=== PATIENT | female | born 1980 | race Caucasian/White ===

== ENCOUNTER 2022-06-28 14:41 | Emergency (ER) | payer MEDICAID ==
[~2022-06-28] VITALS: Ht 165.1 cm; Wt 75.0 kg
[2022-06-28 16:36] LABS: ALANINE AMINOTRANSFERASE 26 U/L (12-78); ALBUMIN 3.2 G/DL (3.4-5.0); ALBUMIN/GLOBULIN RATIO 0.8 (1.1-1.5); ALKALINE PHOSPHATASE 104 IU/L (46-116); ANION GAP 14 (8-16); ASPARTATE AMINO TRANSFERASE 16 U/L (10-37); BILIRUBIN,TOTAL 0.2 MG/DL (0.1-1.0); BLOOD UREA NITROGEN 11 MG/DL (7-18); BUN/CREATININE RATIO 6.4 (6.6-38.0); CALCIUM 9.5 MG/DL (8.5-10.1); CHLORIDE 97 MMOL/L (99-107); CREATININE 1.73 MG/DL (0.40-0.90); GLUCOSE 122 MG/DL (70-104); LIPASE 77 U/L (73-393); SODIUM 134 MMOL/L (135-145); TOTAL CARBON DIOXIDE 23.5 MMOL/L (24-32); TOTAL PROTEIN 7.4 G/DL (6.4-8.2); eGFR 32 ML/MIN
[2022-06-28 16:38] LABS: BASOPHILS % (AUTO) 0.3 % (0-1); EOSINOPHILS % (AUTO) 0.3 % (0-6); HEMATOCRIT 38.8 % (35.0-45.0); HEMOGLOBIN 13.3 g/dl (12.0-16.0); LYMPHOCYTES # (AUTO) 0.8 X10'3 (1.1-4.8); LYMPHOCYTES % (AUTO) 9.2 % (21-51); MEAN CORPUSCULAR HEMOGLOBIN 34.1 PG (27.0-31.0); MEAN CORPUSCULAR HGB CONC 34.3 g/dL (33.0-36.5); MEAN CORPUSCULAR VOLUME 99.6 FL (78-98); MEAN PLATELET VOLUME 8.1 FL (7.4-10.4); NEUTROPHILS # (AUTO) 6.1 X10'3 (1.8-7.7); NEUTROPHILS % (AUTO) 68.2 % (42-75); PLATELET COUNT 296 X10'3 (140-440); RED BLOOD COUNT 3.89 X10'6 (4.20-5.60); RED CELL DISTRIBUTION WIDTH 13.1 % (11.5-14.5)
[2022-06-28 16:43] LABS: POTASSIUM 2.6 MMOL/L (3.5-5.1)
[2022-06-28 16:58] LABS: PLATELET ESTIMATE NORMAL; STOMATOCYTES FEW; TOTAL CELLS COUNTED 100
[2022-06-28] MEDS ORDERED: POTASSIUM BICARB 20meq eff tab 20 MEQ TABLET.EFF PO STA (17:00)
[2022-06-28] MEDS ORDERED: potassium Cl 20 mEq SR tablet PO ONE (17:00)
[2022-06-28] MEDS ORDERED: LISI2.5T89 (17:12)
[2022-06-28] MEDS ORDERED: LISI5TAB22 (17:14)
--- NOTE | 2022-06-28 18:09 | NUR ---
ATTEMPT EKG, PT NOT IN LOBBY AT TIME. WILL ATTEMPT AGAIN.
--- NOTE | 2022-06-28 18:36 | NUR ---
URINE SENT TO LAB ORDERED
[2022-06-28 19:19] LABS: URINE HCG NEGATIVE (NEG)
[2022-06-28 19:24] LABS: CLARITY,URINE SLIGHTLY CLOUDY (Clear); COLOR,URINE YELLOW (Yellow); GLUCOSE, URINE NEGATIVE (Neg); KETONES,URINE TRACE mg/dl (Neg); LEUKOCYTE ESTERASE ,URINE NEGATIVE (Neg); NITRITES, URINE NEGATIVE (Neg); OCCULT BLOOD,URINE TRACE-INTACT (Neg); PH,URINE 5.5 (4.8-8.0); PROTEIN,URINE NEGATIVE (Neg); UROBILINOGEN,URINE 0.2 E.U/dL (0.2-1.0)
[2022-06-28 19:30] LABS: UA COLLECTION TYPE CLN CATCH MIDSTREAM
[2022-06-28 19:31] LABS: BACTERIA,URINE 1+ /HPF (Neg); RBC,URINE 0-2 /HPF (0-2); SQUAMOUS EPITHELIAL CELL,UR MODERATE /LPF (FEW)
[2022-06-28] MEDS ORDERED: ondansetron 4mg rapidly disintigrating tab PO ONE (21:15)
[2022-06-28 21:54] LABS: ANION GAP 12 (8-16); BLOOD UREA NITROGEN 12 MG/DL (7-18); BUN/CREATININE RATIO 6.5 (6.6-38.0); CALCIUM 9.3 MG/DL (8.5-10.1); CHLORIDE 95 MMOL/L (99-107); CREATININE 1.85 MG/DL (0.40-0.90); GLUCOSE 91 MG/DL (70-104); POTASSIUM 3.4 MMOL/L (3.5-5.1); SODIUM 132 MMOL/L (135-145); TOTAL CARBON DIOXIDE 24.8 MMOL/L (24-32); eGFR 30 ML/MIN
--- NOTE | 2022-06-28 22:00 | NUR ---
TO CT VIA WC
[2022-06-28 22:11] LABS: ETHANOL < 0.010 GM/DL (0.0-0.010)
[2022-06-28 22:12] LABS: OCCULT BLOOD STOOL NEGATIVE (Neg)
[2022-06-28] MEDS ORDERED: normal saline 1000ml 1,000 ML IV ONE (22:55)
[2022-06-28] MEDS ORDERED: ONDA4TAB12 PO (23:06)
[2022-06-28] MEDS ORDERED: PANT40TA54 PO (23:06)
[2022-06-28] MEDS ORDERED: pantoprazole 40mg Tablet.DR PO ONE (23:10)
[2022-06-28 23:45] VITALS: BP 128/76
== END 2022-06-29 | disposition home or self-care (01) ==
LOC: ER 14:41
DX: A08.4 Viral intestinal infection, unspecified (principal); Z20.822 Contact with and (suspected) exposure to COVID-19; R10.84 Generalized abdominal pain; I10 Essential (primary) hypertension; E03.9 Hypothyroidism, unspecified; Z91.040 Latex allergy status
CPT/HCPCS: 36415; 74176; 80048; 80053; 80320; 81001; 81025; 82272; 83690; 85007; 85025; 87088; 87502; 87503; 87635; 93005; 96360; 99285; C9803; J7030